=== PATIENT | male | born 1965 | race African-American/Black ===

== ENCOUNTER → 2018-12-28 11:51 | Outpatient (CLI) | payer MEDICARE ==
[~2018-12-28 11:51] MED LIST: FOLIC ACID1 MG PO; PROTONIX40 MG PO; RENVELA800 MG PO; SENSIPAR60 MG PO
[2019-01-15 13:05] VITALS: BMI 21.6
== END | disposition home or self-care (01) ==
LOC: D.CT 11:30
PROVIDERS: ATTEND Surgery
DX: N18.6 End stage renal disease (principal)

== ENCOUNTER 2019-01-05 07:38 | Day surgery (SDC) | payer MEDICARE ==
[~2019-01-05] VITALS: Ht 188 cm; Wt 76.2 kg
[2019-01-05 08:13] LABS: ANION GAP 13.9 mmol/L (8-16); CALCIUM 8.7 mg/dL (8.5-10.1); CARBON DIOXIDE 24.6 mmol/L (21.0-32.0); CREATININE - SERUM 8.9 mg/dL (0.6-1.3); INR 1.06 (0.85-1.17); POTASSIUM - SERUM 4.5 mmol/L (3.5-5.1); PROTIME 13.3 SECONDS (11.6-15.0)
[2019-01-05 08:37] LABS: BASOPHILS 0.4 % (0-2); EOSINOPHILS 7.4 % (0-7); HEMATOCRIT 35.1 % (42.0-54.0); LYMPHOCYTES 19.4 % (15-50); MCHC 31.3 g/dL (31.0-37.0); MCV 70.2 fL (80.0-100.0); MONOCYTES 7.4 % (2-11); NEUTROPHILS 65.4 % (40-80); PLATELET COUNT 255 10x3/uL (130-400); RDW 21.6 % (11.5-14.5); WBC 4.7 10x3/uL (4.8-10.8)
[2019-01-05] MEDS ORDERED: RENVELA800 MG PO ×2 (09:06→09:08)
[2019-01-05] MEDS ORDERED: PROTONIX40 MG PO (09:07)
[2019-01-05] MEDS ORDERED: FOLIC ACID1 MG PO (09:08)
[2019-01-05] MEDS ORDERED: SENSIPAR60 MG PO ×2 (09:08→09:10)
[2019-01-05 09:12] VITALS: BP 122/75; Ht 188 cm; Wt 76.2 kg
--- NOTE | 2019-01-05 16:31 | NUR ---
RIGHT HEMOSPLIT CURRENTLY WITH IV TUBING CONNECTED. IV TUBING DISCONNECTED AND FLUSHED PER EMAR. PRN ADAPTER PLACED. PATIENT WALKING AROUND ROOM WITHOUT DIZZINESS OR UNSTEADINESS, DRESSING IN PERSONAL CLOTHING
--- NOTE | 2019-01-05 16:55 | NUR ---
DISCHARGE INSTRUCTIONS REVIEWED WITH PATIENT, DISCHARGED HOME VIA WHEELCHAIR TO PRIVATE VEHICLE WITH FRIEND
== END 2019-01-05 16:55 | disposition home or self-care (01) ==
LOC: D.OPS 07:38
PROVIDERS: Surgery; ATTEND Internal Medicine Nephrology
DX: I87.1 Compression of vein (principal)

== ENCOUNTER 2019-01-15 10:15 | Outpatient (CLI) | payer MEDICARE ==
[~2019-01-15] VITALS: Ht 188 cm; Wt 76.4 kg
--- NOTE | ~2019-01-15 | HEMODYNAMI ---
PATIENT:JEAN MARIE LOPEZ JR MEDICAL RECORD: [id number] : 67 LOCATION:[facility] ADMISSION DATE: 01/15/19 Generatedon:01/15/201914:02 Patient name: JEAN MARIE LOPEZ Patient #: [id number] SSN: D OB: 1965 Date of study: Page: Of Hemodynamic Procedure Report Patient Data Patient Demographics Procedure consent was obtained First Name: JEAN MARIE Gender: Male Last Name: JOHN Suffix: [facility] Initial: Carola : 1965 Patient #: [id number] Age: 53 year(s) Race: Black Additional ID: [id number] Contact details [address]: [address] [place] [address] State: [place] City: [place] Zip code: [address] Admission Admission Data Admission Date: 01/15/2019 Admission Time: 10:15 Procedure Procedure Types Cath Procedure Peripheral Cath Diagnostic Procedure Venography IVC/SVC Superior Venacagram Procedure Description Procedure Staff Name Function Eduar Kelly MD Performing Physician Devan Patrick RT Monitor Susana Tello RT Scrub Leah Blank RN Nurse Neelima Hurst RN Nurse Hemodynamics Rest Heart Rate: 55 (bpm) Pre Cath Intra NCS Post Cath Vital Signs Time Heart Resp SPO2 etCO2 NIBP (mmHg) Rhythm Pain Sedation Rate (ipm) (%) (mmHg) Status Level (bpm) 13:45:21 54 9 0 132/88(104) NSR 0 (11) 10(A) , No pain 13:50:20 54 14 0 Measuring NSR 0 (11) 10(A) , No pain 13:51:11 53 13 0 127/78(98) NSR 0 (11) 10(A) , No pain 13:55:19 59 15 91 14.3 134/93(109) NSR 0 (11) 10(A) , No pain 13:59:15 68 10 0 No Cuff NSR 0 (11) 10(A) , No pain Procedure Log Time Note 13:23:11 Devan Patrick RT (R) (CV) sent for patient. Start room use. 13:23:16 Time tracking: Regular hours (M-F 7:00 - 5:00) 13:23:22 Plan of Care:Hemodynamics will remain stable., Cardiac rhythm will remain stable., Comfort level will be maintained., Respiratory function will remain adequate., Patient/ family verbilizes understanding of procedure., Procedure tolerated without complication., Recovers from procedure without complications.. 13:23:29 Patient received from Outpatients to IR Alert and oriented. Tansferred to table in Supine position. 13:23:32 Signed procedure consent form obtained from patient. 13:23:35 Correct patient and procedure confirmed by team. 13:23:35 ECG and BP/O2 sat monitors applied to patient. 13:23:36 Full Disclosure recording started 13:23:37 - 13:23:39 H&P Date Dictated: 01/15/2019 H&P Addendum completed by physician on day of procedure. (MUST COMPLETE FOR ALL OUTPATIENTS). 13:23:40 Pre-procedure instructions explained to patient. 13:23:40 Pre-op teaching completed and patient verbalized understanding. 13:23:43 Family unavailable. 13:23:50 Patient NPO since Breakfast. 13:23:55 Is the patient allergic to Iodine/contrast media? No. 13:23:58 Was the patient premedicated? No 13:24:02 Is patient on blood thinner?No 13:24:06 Patient diabetic? No. 13:24:09 - 13:24:10 ----Pre-sedation anethsthesia assessment.---- 13:24:20 Previous problem with sedation/anesthesia? No ? 13:40:32 Use device set IR Diagnostic 13:40:34 Bag Decanter (2001S) opened to sterile field. 13:40:35 Tegaderm 4 x 4 (1626W) opened to sterile field. 13:40:35 Sterile Angiographic Pack opened to sterile field. 13:40:57 DOC .035 wire ([id number]) opened to sterile field. 13:40:58 Micropuncture VSI 4FR kit opened to sterile field. 13:57:47 Snore? No 13:57:49 Sleep apnea? No 13:57:53 Deviated septum? No 13:57:54 Opens mouth fully? Yes 13:57:56 Sticks out tongue? Yes 13:57:58 Airway obstruction? No ? 13:58:00 Dentures? No ? 13:58:41 pt unalble to lay still pt drank coffee this am dr. kelly rescheduling pt.per pt request 14:01:43 Pt removed from table and taken back to OPS 14:02:15 Vital chart was stopped Device Usage Item Name Manufacture Quantity Catalog Hospital Part Current [facility] l Lot# / Number Charge Number Stock Stock Serial# Code Bag Decanter Microtek 1 2001S [id number] 5 () Medical Inc. Sterile Cardinal 1 [id number] 839594 5 Angiographic Health Pack Tegaderm 4 x 3M 1 1626W 088342 488875 088052 5 4 (1626W) DOC .035 wire [employer] 1 [id number] 667572 451527 5 ([id number]) Micropuncture VSI VASCULAR 1 7266V 601963 313711 5 VSI 4FR kit SOLUTIONS Signature Audit [place] Stage Time Signature Unsigned Intra-Procedure 01/15/2019 [facility] [address] [place] [address]
[2019-01-15 10:31] LABS: BASOPHILS 0.4 % (0-2); EOSINOPHILS 8.7 % (0-7); HEMATOCRIT 33.7 % (42.0-54.0); HEMOGLOBIN 10.5 g/dL (13.5-17.5); IMMATURE GRANULOCYTES 0.2 % (0-5); LYMPHOCYTES 17.6 % (15-50); MCH 22.3 pg (26.0-34.0); MCHC 31.2 g/dL (31.0-37.0); MCV 71.7 fL (80.0-100.0); MEAN PLATELET VOLUME 8.9 fL (7.4-10.4); MONOCYTES 6.7 % (2-11); NEUTROPHILS 66.4 % (40-80); PLATELET COUNT 269 10x3/uL (130-400); RDW 21.7 % (11.5-14.5); WBC 4.5 10x3/uL (4.8-10.8)
[2019-01-15 10:48] LABS: CALCIUM 8.3 mg/dL (8.5-10.1); CARBON DIOXIDE 26.2 mmol/L (21.0-32.0); CREATININE - SERUM 12.4 mg/dL (0.6-1.3); POTASSIUM - SERUM 5.2 mmol/L (3.5-5.1)
[2019-01-15 10:59] LABS: INR 1.06 (0.85-1.17); PROTIME 13.3 SECONDS (11.6-15.0)
[2019-01-15 11:00] LABS: APTT 36.4 SECONDS (22.8-39.4)
[2019-01-15 13:05] VITALS: BP 120/74; Ht 188 cm; Wt 76.4 kg
--- NOTE | 2019-01-15 13:10 | NUR ---
1250 SPOKE WITH MATILDE (DR AGEE'S NURSE) WHO GAVE PERMISSION TO USE HEMASPLIT FOR IV FLUIDS FOR RADIOLOGY PROCEDURE. RECEIVED ORDERS ON HEPLOCK FLUSH AFTER USE. RECEIVED A CALL BACK FROM DR WORTHINGTON'S NURSE, KATY, WHO VERIFIED THAT THE HEMASPLIT COULD BE USED AND THAT THE CONCENTRATION OF HEPARIN (1,000 UNITS/ML AND TO USE 3 MLS TO FLUSH FOR HEPLOCK) WAS OK. AWARE OF TODAY'S LABS. PT WAS DIALYSISED ON TUESDAY.
--- NOTE | 2019-01-15 15:32 | NUR ---
DC INSTRUCTIONS GIVEN TO PT. STATES UNDERSTANDING. DC'D IV CATH FULLY INTACT. PT LEFT UNIT VIA AT [phone]
== END 2019-01-15 15:27 | disposition home or self-care (01) ==
LOC: D.SP 10:15 → D.RAD 12:30 → D.SP 15:27
PROVIDERS: General Practice; ATTEND Surgery
DX: N18.6 End stage renal disease (principal); Z53.8 Procedure and treatment not carried out for other reasons

== ENCOUNTER 2019-01-30 08:12 | Outpatient (CLI) | payer MEDICARE ==
[~2019-01-30] VITALS: Ht 188 cm; Wt 77.3 kg
--- NOTE | ~2019-01-30 | HEMODYNAMI ---
PATIENT:JEAN MARIE LOPEZ JR MEDICAL RECORD: [id number] : 67 LOCATION:[facility] ADMISSION DATE: 01/30/19 Generatedon:01/30/201912:10 Patient name: JEAN MARIE LOPEZ Patient #: [id number] SSN: D OB: 1965 Date of study: 01/30/2019 Page: Of Hemodynamic Procedure Report Patient Data Patient Demographics Procedure consent was obtained First Name: JEAN MARIE Gender: Male Last Name: JOHN Suffix: [facility] Initial: Carola : 1965 Patient #: [id number] Age: 53 year(s) Race: Black Additional ID: [id number] Contact details Address: [address] [place] [address] State: [place] City: [place] Zip code: [address] Past Medical History Allergies: No known allergies Admission Admission Data Admission Date: 01/30/2019 Admission Time: 8:12 Procedure Procedure Types Cath Procedure Peripheral Cath Diagnostic Procedure Venography IVC/SVC Superior Venacagram Procedure Description Procedure Date Procedure Date: 01/30/2019 Procedure Start Time: 11:05 Procedure Staff Name Function Eduar Kelly MD Performing Physician BRIAN ROBLEDO RT Monitor Leah Blank RN Nurse Neelima Hurst RN Nurse Devan Patrick RT Scrub Crystal Murphy CRNA Additional personnel Procedure Data Cath Procedure Fluoroscopy Diagnostic fluoroscopy Total fluoroscopy Time: time: 22.7 min 22.7 min Diagnostic fluoroscopy Total fluoroscopy dose: 358 dose: 358 mGy mGy Contrast Material Contrast Material Type Amount (ml) Isovue 300 115 Entry Location Entry Primary Successful Side Size Upsize Upsize Entry Closure Succes sful Closure Location (Fr) 1 (Fr) 2 (Fr) Remarks Device Remarks Axiliary Right 6 Fr Long Femoral Right 6 Fr artery Long Procedure Medications Medication Administration Route Dosage Heparin Flush Bag added to field 2 bags (1000units/500ml NS) Lidocaine 1% added to field 20 Hemodynamics Rest Heart Rate: 74 (bpm) Snapshots Pre Cath Intra NCS Post Cath Vital Signs Time Heart Resp SPO2 etCO2 NIBP (mmHg) Rhythm Pain Sedation Rate (ipm) (%) (mmHg) Status Level (bpm) 10:15:56 71 14 72 21.9 132/90(103) NSR 0 (11) 10(A) , No pain 10:23:49 74 22 100 12 128/90(104) NSR 0 (11) 10(A) , No pain 10:27:52 74 21 100 12.8 130/91(109) NSR 0 (11) 10(A) , No pain 10:32:00 76 20 100 8.3 121/86(102) NSR 0 (11) 10(A) , No pain 10:36:02 73 13 100 36.2 136/89(106) NSR 0 (11) 10(A) , No pain 10:40:10 72 17 100 31.7 132/88(105) NSR 0 (11) 10(A) , No pain 10:44:16 72 19 100 28.7 129/92(104) NSR 0 (11) 10(A) , No pain 10:48:19 74 23 100 12.8 133/93(110) NSR 0 (11) 10(A) , No pain 10:52:25 73 24 100 12.8 136/93(113) NSR 0 (11) 10(A) , No pain 10:56:25 72 24 100 11.3 No Cuff NSR 0 (11) 10(A) , No pain 10:59:09 71 21 100 12 155/83(119) NSR 0 (11) 10(A) , No pain 11:04:08 70 22 100 28.7 Measuring NSR 0 (11) 10(A) , No pain 11:04:15 70 22 100 27.9 149/72(100) NSR 0 (11) 10(A) , No pain 11:08:32 70 25 100 20.4 153/78(125) NSR 0 (11) 10(A) , No pain 11:12:40 73 17 100 34 135/78(112) NSR 0 (11) 10(A) , No pain 11:16:56 72 17 100 37 142/67(107) NSR 0 (11) 10(A) , No pain 11:21:08 73 16 100 41.5 138/72(103) NSR 0 (11) 10(A) , No pain 11:25:24 74 17 100 37 136/67(114) NSR 0 (11) 10(A) , No pain 11:29:40 74 16 100 37.7 148/67(107) NSR 0 (11) 10(A) , No pain 11:33:58 74 17 100 35.5 140/69(117) NSR 0 (11) 10(A) , No pain 11:38:16 74 17 100 36.2 141/65(108) NSR 0 (11) 10(A) , No pain 11:42:26 111 17 100 37 131/60(102) NSR 0 (11) 10(A) , No pain 11:46:38 108 19 100 31.7 137/75(104) NSR 0 (11) 10(A) , No pain 11:50:50 107 19 100 30.2 145/80(111) NSR 0 (11) 10(A) , No pain 11:55:06 74 19 25.6 147/77(113) NSR 0 (11) 10(A) , No pain 11:59:24 72 22 21.8 153/75(112) NSR 0 (11) 10(A) , No pain 12:03:44 74 23 21.8 160/74(112) NSR 0 (11) 10(A) , No pain 12:08:06 71 22 26.3 163/79(110) NSR 0 (11) 10(A) , No pain Medications Time Medication Route Dose Verified Delivered Reason Notes Effec tiveness by by 9:37:42 Heparin Flush added 2 Eduar Witt used for Bag to bags Leticia Kelly MD procedure (1000units/500ml field NS) 9:37:59 Lidocaine 1% added 20ml Eduar Witt for local to vial Leticia Kelly MD anesthetic field MD Procedure Log Time Note 9:36:04 Use device set IR Diagnostic 9:36:12 Tegaderm 4 x 4 (1626W) opened to sterile field. 9:36:12 Sterile Angiographic Pack opened to sterile field. 9:36:13 Bag Decanter (2001S) opened to sterile field. 9:36:28 MICROPUNCTURE 4FR Cook (U65400) opened to sterile field. 9:36:45 DOC .035 wire (H70372) opened to sterile field. 9:36:51 Devan Trotterchet RT (R) (CV) sent for patient. Start room use. 9:36:52 Time tracking: Regular hours (M-F 7:00 - 5:00) 9:36:57 Plan of Care:Hemodynamics will remain stable., Cardiac rhythm will remain stable., Comfort level will be maintained., Respiratory function will remain adequate., Patient/ family verbilizes understanding of procedure., Procedure tolerated without complication., Recovers from procedure without complications.. 9:37:15 Patient received from Outpatients to IR Alert and oriented. Tansferred to table in Supine position. 9:37:19 Signed procedure consent form obtained from patient. 9:37:20 Warm blankets applied, and julia hugger turned on for patient comfort. 9:37:20 Correct patient and procedure confirmed by team. 9:37:21 ECG and BP/O2 sat monitors applied to patient. 9:37:22 - 9:37:23 - 9:37:30 H&P Date Dictated: 01/30/2019 H&P Addendum completed by physician on day of procedure. (MUST COMPLETE FOR ALL OUTPATIENTS). 9:37:32 Pre-procedure instructions explained to patient. 9:37:33 Pre-op teaching completed and patient verbalized understanding. 9:37:42 Heparin Flush Bag (1000units/500ml NS) 2 bags added to field was administered by Eduar Kelly MD; used for procedure; Verbal order read back and verified. 9:37:43 Patient NPO since Midnight. 9:37:48 Patient allergic to No known allergies 9:37:51 Is the patient allergic to Iodine/contrast media? No. 9:37:59 Lidocaine 1% 20ml vial added to field was administered by Eduar Kelly MD; for local anesthetic; Verbal order read back and verified. 9:38:22 GLIDE WIRE .035 180CM STRAIGHT (WU0251) opened to sterile field. 9:39:03 TORQUE DEVICE PLASTIC .038 ( TD01) opened to sterile field. 9:39:32 GLIDE CATHETER 5FR ANGLED 65cm (CG507) opened to sterile field. 9:39:36 Is patient on blood thinner?No 9:40:47 - 9:40:49 ----see anethesia note for Pre-sedation anethsthesia assessment.---- 9:41:41 - 10:22:52 Baseline sample Acquired. 10:22:52 Vital chart was started 10:22:56 Full Disclosure recording started 10:23:01 - 10:27:20 Physician arrived 10:27:25 SHEATH 6FR Brite Tip 35cm (457143V) opened to sterile field. 10:28:25 GLIDE WIRE ANGLE 180cm (DS2681) opened to sterile field. 10:31:22 --------ALL STOP TIME OUT------ :31:23 Final Timeout: patient, procedure, and site verified with staff and physician. All members of the team are in agreement. 10:31:54 Right neck site verified by team. 10:31:59 Fire Safety Assessment: A--An alcohol-based skin anteseptic being used preoperatively., C--Open oxygen or nitrous oxide is being used. 10:32:06 5) <15 or on dialysis Very severe, or end stage kidney failure. 10:32:10 Eduar Kelly MD present and monitoring patient for TIVA. 10:32:21 Crystal Murphy CRNA present and monitoring patient for TIVA. 10:32:23 - 10:32:32 Procedure started. 11:02:32 Right Arm area was prepped with chlora-prep and draped in sterile fashion 11:05:55 Local anesthetic to right arm with Lidocaine 1% by Eduar Kelly MD.INITIAL ACCESS ONLY 11:06:06 MICROPUNCTURE 4FR Cook (K38614) opened to sterile field. 11:09:27 SHEATH 6FR [place] (OQD102) opened to sterile field. 11:10:04 A 6 Fr Long sheath was inserted into the Right Axiliary 11:16:01 GLIDE WIRE Super Stiff Angled 260cm (UV2378) opened to sterile field. 11:22:47 CXI Catheter 90cm (F27371) opened to sterile field. 11:33:01 - 11:33:04 Right groin area was prepped with chlora-prep and draped in sterile fashion 11:40:09 GLIDE WIRE Super Stiff Angled 260cm (NS6315) opened to sterile field. 11:40:42 BENTSON 145cm wire (G05592) opened to sterile field. 11:40:42 TORQUE DEVICE PLASTIC .038 ( TD01) opened to sterile field. 11:40:49 SHEATH 6FR [place] (GCO743) opened to sterile field. 11:41:25 A 6 Fr Long sheath was inserted into the Right Femoral artery 11:58:33 Procedure ended.(Physican Out) 11:58:48 Fluoroscopy time 22.70 minutes. 12:00:25 Fluoroscopy dose: 358 mGy 12:00:25 Flurop Dose total: 358 12:00:32 Contrast amount:Isovue 300 115ml. 12:00:50 Insertion/operative site no bleeding no hematoma. 12:03:47 Procedure and supply charges have been captured, reviewed, submitted an d are correct. 12:08:36 See physician's report for complete and final results. 12:10:22 Vital chart was stopped 12:10:25 End room use (Document Last) Device Usage Item Name Manufacture Quantity Catalog Hospital Part Current [employer]ima l Lot# / Number Charge Number Stock Stock Serial# Code Tegaderm 4 x 3M 1 1626W [id number] 238564 [id number] 5 4 (1626W) Sterile Cardinal 1 [id number] 206498 353005 5 Angiographic Health Pack Bag Decanter Microtek 1 2001S 495763 07832 336965 5 (2001S) Medical Inc. MICROPUNCTURE [employer] 2 [id number] 314311 441762 333208 5 4FR Cook (A84018) DOC .035 wire [employer] 1 T77011 254412 958988 5 (A36300) GLIDE WIRE Terumo 1 TD6234 938732 346566 5 .035 180CM STRAIGHT (OF4110) TORQUE DEVICE Childs 2 TD01 385499 318698 022980 5 PLASTIC .038 Scientific ( TD01) GLIDE Terumo 1 CG507 557605 969390 5 CATHETER 5FR ANGLED 65cm (CG507) SHEATH 6FR Cardinal 1 [id number] 985135 174483 977961 1 [employer] 35cm (607299K) GLIDE WIRE Terumo 1 GS6970 315260 713550 179765 5 ANGLE 180cm (PT5600) SHEATH 6FR Ter[employer]o 2 NHZ806 961953 622694 437457 40 [place] (ZIP518) GLIDE WIRE Terumo 2 ML1243 487592 320000 272254 5 Super Stiff Angled 260cm (LS6538) GLIDE WIRE Terumo 1 LC0592 293928 255367 5 Angled Super Stiff 180cm (RM0140) CXI Catheter [facility] 1 [id number] 801096 283645 371901 5 [id number] 90cm (N83479) BENTSON 145cm [facility] 1 P99742 075622 097855 5 wire (L59303) Signature Audit [place] Stage Time Signature Unsigned Intra-Procedure 01/30/2019 BRIAN ROBLEDO RT 12:10:43 PM (R) [facility] [address] [place] [address]
[2019-01-30 08:40] LABS: BASOPHILS 0.2 % (0-2); EOSINOPHILS 5.2 % (0-7); HEMATOCRIT 36.2 % (42.0-54.0); IMMATURE GRANULOCYTES 0.2 % (0-5); LYMPHOCYTES 16.3 % (15-50); MCH 22.5 pg (26.0-34.0); MCHC 30.4 g/dL (31.0-37.0); MCV 74.2 fL (80.0-100.0); MEAN PLATELET VOLUME 9.2 fL (7.4-10.4); MONOCYTES 7.6 % (2-11); NEUTROPHILS 70.5 % (40-80); PLATELET COUNT 250 10x3/uL (130-400); RBC 4.88 10x6/uL (4.20-6.10); RDW 21.8 % (11.5-14.5); WBC 5.2 10x3/uL (4.8-10.8)
[2019-01-30 08:55] LABS: APTT 33.7 SECONDS (22.8-39.4); INR 1.12 (0.85-1.17); PROTIME 13.9 SECONDS (11.6-15.0)
[2019-01-30 08:59] LABS: ANION GAP 13.6 mmol/L (8-16); CALCIUM 8.4 mg/dL (8.5-10.1); CARBON DIOXIDE 28.9 mmol/L (21.0-32.0); POTASSIUM - SERUM 4.5 mmol/L (3.5-5.1)
[2019-01-30 09:02] VITALS: Ht 188 cm; Wt 77.3 kg
--- NOTE | 2019-01-30 17:17 | NUR ---
1615 IV REMOVED AND INSTRUCTIONS GIVEN.
== END 2019-01-30 16:15 | disposition home or self-care (01) ==
LOC: D.SP 08:12 → D.RAD 10:00 → D.SP 10:00
PROVIDERS: General Practice; ATTEND Surgery
DX: N18.6 End stage renal disease (principal); I82.210 Acute embolism and thrombosis of superior vena cava